=== PATIENT | female | born 1990 | race Caucasian/White ===

== ENCOUNTER 2020-06-29 12:56 | Emergency (ER) | payer OTHER, SELFPAY ==
[~2020-06-29] VITALS: Ht 165.1 cm; Wt 68.0 kg
[2020-06-29 12:57] VITALS: Ht 165.1 cm; Wt 68.0 kg
[2020-06-29 14:43] LABS: BASOPHIL % 0.5 % (0-2); PLATELET COUNT 366 x10^3mcL (130-400)
[2020-06-29 14:55] LABS: CALCIUM 8.5 mg/dL (8.5-10.1); CARBON DIOXIDE 22.9 mmol/L (21-32); CHLORIDE SERUM 105 mmol/L (98-107); CREATININE SERUM 0.7 mg/dL (0.6-1.0); GFR1 > 60 mL/min; GLUCOSE SERUM 87 mg/dL (74-106); POTASSIUM SERUM 3.3 mmol/L (3.5-5.1); SODIUM SERUM 140 mmol/L (136-145)
[2020-06-29 15:05] LABS: ALBUMIN 4.1 g/dL (3.4-5.0); ALKALINE PHOSPHATASE 50 U/L (46-116); ALT/SGPT 17 U/L (14-59); AST/SGOT 26 U/L (15-37); BILIRUBIN TOTAL 0.56 mg/dL (0.20-1.00); TOTAL PROTEIN, SERUM 7.7 g/dL (6.4-8.2)
[2020-06-29 15:55] LABS: AMPHETAMINE QUAL UR NONE DETECTED (See below)
[2020-06-29 18:00] VITALS: BP 138/82
== END 2020-06-29 18:00 | disposition home or self-care (01) ==
LOC: ED 12:56
PROVIDERS: Emergency Medicine
DX: R06.00 Dyspnea, unspecified (principal); R06.4 Hyperventilation; Z20.828 Contact with and (suspected) exposure to other viral communicable diseases
CPT/HCPCS: 36600; 85378; Q0092; Q9967; U0003